=== PATIENT | male | born 1945 | race African-American/Black ===

== ENCOUNTER 2018-07-12 16:51 | Emergency (ER) | payer OTHER ==
[2018-07-12 18:10] LABS: Absolute Lymphocytes (CBC) 1.1 K/uL (0.7-4.9); Absolute Monocytes 0.5 K/uL (0.1-1.3); Absolute Neutrophil 5.5 K/uL (1.8-8.0); Eosinophils % 1.2 % (0-4.4); Hematocrit 37.5 % (39.6-49.0); Lymphocytes % 15.1 % (15.3-44.8); Monocytes % 7.4 % (3.3-12.3); RBC Red Blood Cell Count 4.06 M/uL (4.33-5.43)
[2018-07-12] MEDS ORDERED: FENTANYL CITR 100 MCG/2 ML ONE ×2 (18:24→19:36)
[2018-07-12] MEDS ORDERED: METRONIDAZOLE 500mg IVPB 500 MG/100 ML BAG IV ONE (18:26)
[2018-07-12] MEDS ORDERED: ONDANSETRON 4 MG/2 ML VIAL ONE (18:26)
[2018-07-12] MEDS ORDERED: CIPROFLOXACIN 400mg IV 400 MG/200 ML BAG IV ONE (18:26)
[2018-07-12 18:32] LABS: ALT/SGPT 35 U/L (12-78); AST/SGOT 29 U/L (15-37); Albumin 3.9 g/dL (3.4-5.0); Alkaline Phosphatase 67 U/L (45-117); BUN Blood Urea Nitrogen 18 mg/dL (7-18); Bicarbonate 29 mmol/L (21-32); Bilirubin Direct < 0.1 mg/dL (0-0.2); Bilirubin Total 0.2 mg/dL (0.2-1.0); Glucose Level 102 mg/dL (74-106); Lipase 83 U/L (73-393); Potassium 4.2 mmol/L (3.5-5.1); Protein, Total 7.5 g/dL (6.4-8.2); Sodium Level 142 mmol/L (136-145)
[2018-07-12] MEDS ORDERED: CEFTRIAXONE/SWI 1gm 1 GM/10 ML SYR ONE (19:00)
[2018-07-12 19:21] LABS: Blood Morphology Comment NOT SEEN (NOT SEEN); Platelet Estimate ADEQ; Urine White Blood Cell Casts OK
--- NOTE | 2018-07-12 20:14 | RAD REPORT ---
EXAM DESCRIPTION: CT - Chest Abdomen Pelvis W Cont - 07/12/2018 8:00 pm CLINICAL HISTORY: Chest and abdomen pain. ABD PAIN COMPARISON: No comparisons TECHNIQUE: Approximately 100 mL nonionic IV contrast was administered to the patient. All CT scans are performed using dose optimization technique as appropriate and may include automated exposure control or mA/KV adjustment according to patient size. FINDINGS: Prominent emphysematous changes are present throughout the lungs with areas of parahilar s carring present bilaterally. No focal lung infiltrate.No pleural or pericardial effusion.No intrathor acic adenopathy.Pulmonary arterial tree appears prominent in size likely indicating underlying pulmon rolando arterial hypertension. Mild fatty liver is present. No focal lesion or biliary dilatation. The spleen, pancreas, adrenal gla nds and kidneys show no acute process. Benign 1 cm cortical cyst is present right kidney. Moderate inflammation is seen surrounding proximal descending colon where several diverticula are pre sent. Thickening and fluid is present in the left pericolic gutter. Normal appendix. No pathologic l ymphadenopathy in the abdomen or pelvis. No worrisome osseous finding. IMPRESSION: Mild short-segment acute diverticulitis involving the descending colon without abscess.
--- NOTE | 2018-07-12 20:15 | RAD REPORT ---
EXAM DESCRIPTION: RAD - Chest Single View - 07/12/2018 6:57 pm CLINICAL HISTORY: ABDOMINAL DISTENTION Chest pain. COMPARISON: No comparisons FINDINGS: Portable technique limits examination quality. Prominent emphysematous and fibrotic changes are present throughout the lungs. The heart is mildly pr ominent in size. No displaced fractures.
--- NOTE | 2018-07-12 20:18 | ER ---
Nurse's Notes [facility] Name: Everton Ochoa Age: 73 yrs Sex: Male : 1945 Arrival Date: 07/12/2018 Time: 16:55 Bed 2 Private MD: out of town, doctor Diagnosis: Abdominal tenderness;Diverticular disease of intestine;Diverticulitis of large intestine without perforation or abscess without bleeding;Type 2 diabetes mellitus Presentation: 07/12 17:02 Presenting complaint: Patient states: Left-sided abd pain and diarrhea x 2 days ago. Pt aa5 reports hx of diverticulitis, denies bloody stools. Transition of care: patient was not received from another setting of care. Onset of symptoms was June 2018. Risk Assessment: Do you want to hurt yourself or someone else? Patient reports no desire to harm self or others. Initial Sepsis Screen: Does the patient meet any 2 criteria? No. Patient's initial sepsis screen is negative. Does the patient have a suspected source of infection? No. Patient's initial sepsis screen is negative. Care prior to arrival: None. 17:02 Method Of Arrival: Ambulatory aa5 17:02 Acuity: JUNIOR 3 aa5 Historical: - Allergies: 17:07 No Known Allergies; aa5 - Home Meds: 17:07 Advair Diskus Inhl [Active]; Albuterol Inhl [Active]; amlodipine 5 mg tab [Active]; aa5 Aspirin Oral [Active]; azathioprine 50 mg Oral tab [Active]; Bystolic 5 mg oral tab [Active]; lisinopril 10 mg Oral tab [Active]; bactrim DS Thursday, Thursday and Thursday [Active]; metformin 500 mg Oral tab [Active]; pravastatin oral oral [Active]; Nexium Oral [Active]; - PMHx: 17:07 Hypertension; Diabetes - NIDDM; Pulmonary hypertension; Diverticulitis; aa5 17:07 Sarcoidosis; aa5 - PSHx: 17:07 Heart stents; aa5 - Immunization history:: Adult Immunizations up to date. - Social history:: Smoking status: Patient/guardian denies using tobacco. - Family history:: not pertinent. - Ebola Screening: : No symptoms or risks identified at this time. Screenin:59 Abuse screen: Denies threats or abuse. Denies injuries from another. Nutritional sv screening: No deficits noted. Tuberculosis screening: No symptoms or risk factors identified. Fall Risk None identified. Assessment: 17:55 General: Appears in no apparent distress. uncomfortable, well developed, Behavior is sv calm, cooperative, appropriate for age. Pain: Complains of pain in left lower quadrant and left upper quadrant Pain currently is 7 out of 10 on a pain scale. Quality of pain is described as tender, Pain began 2-3 days ago. Is intermittent. Neuro: Level of Consciousness is awake, alert, obeys commands, Oriented to person, place, time, situation, Moves all extremities. Full function Gait is steady. Respiratory: Airway is patent Respiratory effort is even, unlabored, Respiratory pattern is regular, symmetrical. GI: Abdomen is distended, Abdomen is tender to palpation in left upper quadrant and left lower quadrant. Derm: Skin is pink, warm \T\ dry. 18:26 Reassessment: Patient appears in no apparent distress at this time. Patient and/or tw2 family updated on plan of care and expected duration. Pain level reassessed. Patient is alert, oriented x 3, equal unlabored respirations, skin warm/dry/pink. 18:55 Reassessment: Patient appears in no apparent distress at this time. Patient and/or sv family updated on plan of care and expected duration. Pain level reassessed. Patient is alert, oriented x 3, equal unlabored respirations, skin warm/dry/pink. 19:22 Reassessment: Patient appears in no apparent distress at this time. Patient and/or aa1 family updated on plan of care and expected duration. Pain level reassessed. Patient is alert, oriented x 3, equal unlabored respirations, skin warm/dry/pink. Pt reports pain has improved but is still there. Per MD orders will give additional dose of pain medication at this time. 19:50 Reassessment: Patient appears in no apparent distress at this time. Patient is alert, aa1 oriented x 3, equal unlabored respirations, skin warm/dry/pink. pt taken to CT at this time. 20:45 Reassessment: Patient appears in no apparent distress at this time. Patient is alert, aa1 oriented x 3, equal unlabored respirations, skin warm/dry/pink. Discussed d/c \T\ f/u instructions with pt \T\ significant other; denies questions or concerns at this time Patient states feeling better. Vital Signs: 17:05 BP 148 / 64; Pulse 92; Resp 16 S; Temp 99.4(TE); Pulse Ox 97% on R/A; Weight 75.3 kg aa5 (R); Height 5 ft. 6 in. (167.64 cm) (R); Pain 7/10; 18:26 BP 139 / 73; Pulse 84; Resp 17; Pulse Ox 95% on R/A; tw2 19:20 BP 149 / 71; Pulse 86; Resp 18; Temp 98.5; Pulse Ox 95% on R/A; Pain 5/10; aa1 20:30 BP 121 / 65; Pulse 74; Resp 16; Temp 98.1; Pulse Ox 97% on R/A; Pain 0/10; aa1 17:05 Body Mass Index 26.79 (75.30 kg, 167.64 cm) aa5 ED Course: 16:55 Patient arrived in ED. mr 16:56 out of town, doctor is Private Physician. mr 17:02 Arm band placed on. aa5 17:03 Triage completed. aa5 17:37 Adams Shah MD is Attending Physician. clint 17:51 Di Ortiz, RN is Primary Nurse. sv 17:55 Initial lab(s) drawn, by me, sent to lab. Inserted saline lock: 20 gauge in right sv antecubital area, using aseptic technique. Blood collected. Flushed right antecubital with 5 ml normal saline. 17:59 Patient has correct armband on for positive identification. Placed in gown. Bed in low sv position. Adult w/ patient. Door closed. Head of bed elevated. 18:24 EKG done, by ED staff, reviewed by Adams Shah MD. sv 18:34 Awaiting lab results, Awaiting CT Scan. sv 18:56 Chest Single View XRAY In Process Unspecified. EDMS 19:02 Report given to Migdalia HALL. sv 19:07 Primary Nurse role handed off by Di Ortiz, ISABEL sv 19:09 Michelle Iqbal, ISABEL is Primary Nurse. aa1 19:30 [facility]ord[facility]C [facility]. snw 19:[address] via wheelchair. vm2 19:58 CT completed. Patient tolerated procedure well. Patient moved back from CT. vm2 20:01 Chest Abdomen Pelvis W Cont In Process Unspecified. EDMS 20:18 Samuel Porter MD is Referral Physician. snw 20:30 No provider procedures requiring assistance completed. IV discontinued, intact, aa1 bleeding controlled, No redness/swelling at site. Pressure dressing applied. Administered Medications: 18:18 Drug: Zofran 4 mg Route: IVP; Site: right antecubital; tw2 18:55 Follow up: Response: No adverse reaction; Nausea is decreased sv 18:20 Drug: fentaNYL (PF) 25 mcg Route: IVP; Site: right antecubital; tw2 18:55 Follow up: Response: No adverse reaction sv 18:21 Drug: Flagyl 500 mg Volume: 100 ml; Route: IVPB; Rate: 200 ml/hr; Infused Over: 30 tw2 mins; Site: right antecubital; 19:03 Follow up: Response: No adverse reaction; IV Status: Completed infusion; IV Intake: sv 100ml 18:53 Drug: Rocephin - (cefTRIAXone) 1 grams Route: IVPB; Infused Over: 30 mins; Site: right sv antecubital; 19:00 Follow up: IV Status: Completed infusion aa1 18:59 Drug: Cipro 400 mg Volume: 200 ml; Route: IVPB; Infused Over: 60 mins; Site: right tw2 antecubital; 20:00 Follow up: IV Status: Completed infusion aa1 19:29 Drug: fentaNYL (PF) 25 mcg Route: IVP; Site: right antecubital; aa1 20:30 Follow up: Response: No adverse reaction; Pain is decreased aa1 Intake: 18:25 PO: 500ml (Contrast); Total: 500ml. sv 19:03 IV: 100ml; Total: 600ml. sv 18:25 Called and informed Franko. sv Outcome: 20:18 Discharge ordered by . snw 20:30 Discharged to home ambulatory, with significant other. aa1 20:30 Condition: good 20:30 Discharge instructions given to patient, significant other, Instructed on discharge instructions, follow up and referral plans. medication usage, Demonstrated understanding of instructions, follow-up care, medications, Prescriptions given X 3. 20:47 Patient left the ED. aa1 Signatures: Dispatcher [employer] EDHI Di Ortiz RN RN Michelle Moreland RN RN aa1 Adams Shah MD MD cha Therrien, Shelly, MATE CHIEF-C MATE CHIEF-Csnw Shila AndersonLaina zavala RN RN aa5 Santa Hoffman RN RN tw2 Shalonda Perez 2 Corrections: (The following items were deleted from the chart) 19:03 18:55 Response: No adverse reaction; IV Status: Completed infusion tw2 sv
--- NOTE | 2018-07-12 20:18 | EDPHYS ---
Physician Documentation [facility] Name: Everton Ochoa Age: 73 yrs Sex: Male : 1945 Arrival Date: 07/12/2018 Time: 16:55 Bed 2 Private MD: out of town, doctor ED Physician Adams Shah HPI: 07/12 18:11 This 73 yrs old Black Male presents to ER via Ambulatory with complaints of Abdominal clint Pain. 18:11 The patient presents with abdominal pain in the left upper quadrant, in the left lower clint quadrant. Onset: The symptoms/episode began/occurred 2 day(s) ago. The symptoms do not radiate. Associated signs and symptoms: none. The symptoms are described as constant, crampy. Modifying factors: The symptoms are alleviated by nothing. Severity of pain: At its worst the pain was moderate. The patient has experienced similar episodes in the past, several times. Historical: - Allergies: 17:07 No Known Allergies; aa5 - Home Meds: 17:07 Advair Diskus Inhl [Active]; Albuterol Inhl [Active]; amlodipine 5 mg tab [Active]; aa5 Aspirin Oral [Active]; azathioprine 50 mg Oral tab [Active]; Bystolic 5 mg oral tab [Active]; lisinopril 10 mg Oral tab [Active]; bactrim DS Thursday, Thursday and Thursday [Active]; metformin 500 mg Oral tab [Active]; pravastatin oral oral [Active]; Nexium Oral [Active]; - PMHx: 17:07 Hypertension; Diabetes - NIDDM; Pulmonary hypertension; Diverticulitis; aa5 17:07 Sarcoidosis; aa5 - PSHx: 17:07 Heart stents; aa5 - Immunization history:: Adult Immunizations up to date. - Social history:: Smoking status: Patient/guardian denies using tobacco. - Family history:: not pertinent. - Ebola Screening: : No symptoms or risks identified at this time. ROS: 18:11 Constitutional: Negative for fever, chills, and weight loss, Eyes: Negative for injury, clint pain, redness, and discharge, ENT: Negative for injury, pain, and discharge, Neck: Negative for injury, pain, and swelling, Cardiovascular: Negative for chest pain, palpitations, and edema, Respiratory: Negative for shortness of breath, cough, wheezing, and pleuritic chest pain, Back: Negative for injury and pain, : Negative for injury, bleeding, discharge, and swelling, MS/Extremity: Negative for injury and deformity, Skin: Negative for injury, rash, and discoloration, Neuro: Negative for headache, weakness, numbness, tingling, and seizure, Psych: Negative for depression, anxiety, suicide ideation, homicidal ideation, and hallucinations, Allergy/Immunology: Negative for hives, rash, and allergies, Endocrine: Negative for neck swelling, polydipsia, polyuria, polyphagia, and marked weight changes, Hematologic/Lymphatic: Negative for swollen nodes, abnormal bleeding, and unusual bruising. 18:11 Abdomen/GI: Positive for abdominal pain, abdominal cramps, of the left upper quadrant and left lower quadrant. Exam: 18:11 Constitutional: This is a well developed, well nourished patient who is awake, alert, clint and in no acute distress. Head/Face: Normocephalic, atraumatic. Eyes: Pupils equal round and reactive to light, extra-ocular motions intact. Lids and lashes normal. Conjunctiva and sclera are non-icteric and not injected. Cornea within normal limits. Periorbital areas with no swelling, redness, or edema. ENT: Nares patent. No nasal discharge, no septal abnormalities noted. Tympanic membranes are normal and external auditory canals are clear. Oropharynx with no redness, swelling, or masses, exudates, or evidence of obstruction, uvula midline. Mucous membranes moist. Neck: Trachea midline, no thyromegaly or masses palpated, and no cervical lymphadenopathy. Supple, full range of motion without nuchal rigidity, or vertebral point tenderness. No Meningismus. Chest/axilla: Normal chest wall appearance and motion. Nontender with no deformity. No lesions are appreciated. Cardiovascular: Regular rate and rhythm with a normal S1 and S2. No gallops, murmurs, or rubs. Normal PMI, no JVD. No pulse deficits. Respiratory: Lungs have equal breath sounds bilaterally, clear to auscultation and percussion. No rales, rhonchi or wheezes noted. No increased work of breathing, no retractions or nasal flaring. Back: No spinal tenderness. No costovertebral tenderness. Full range of motion. Male : Normal genitalia with no discharge or lesions. Skin: Warm, dry with normal turgor. Normal color with no rashes, no lesions, and no evidence of cellulitis. MS/ Extremity: Pulses equal, no cyanosis. Neurovascular intact. Full, normal range of motion. Neuro: Awake and alert, GCS 15, oriented to person, place, time, and situation. Cranial nerves II-XII grossly intact. Motor strength 5/5 in all extremities. Sensory grossly intact. Cerebellar exam normal. Normal gait. Psych: Awake, alert, with orientation to person, place and time. Behavior, mood, and affect are within normal limits. 18:11 Abdomen/GI: Inspection: distension, Bowel sounds: normal, Palpation: mild abdominal tenderness, moderate abdominal tenderness, in the left upper quadrant and left lower quadrant, Liver: no appreciated palpable abnormalities, Hernia: not appreciated. Vital Signs: 17:05 BP 148 / 64; Pulse 92; Resp 16 S; Temp 99.4(TE); Pulse Ox 97% on R/A; Weight 75.3 kg aa5 (R); Height 5 ft. 6 in. (167.64 cm) (R); Pain 7/10; 18:26 BP 139 / 73; Pulse 84; Resp 17; Pulse Ox 95% on R/A; tw2 19:20 BP 149 / 71; Pulse 86; Resp 18; Temp 98.5; Pulse Ox 95% on R/A; Pain 5/10; aa1 20:30 BP 121 / 65; Pulse 74; Resp 16; Temp 98.1; Pulse Ox 97% on R/A; Pain 0/10; aa1 17:05 Body Mass Index 26.79 (75.30 kg, 167.64 cm) aa5 MDM: 17:37 Patient medically screened. [facility] 18:11 Data reviewed: vital signs, nurses notes, lab test result(s), EKG, radiologic studies, [facility] CT scan, plain films. 07/12 17:51 Order name: Basic Metabolic Panel; Complete Time: 18:47 sv 07/12 17:51 Order name: CBC with Diff; Complete Time: 19:30 sv 07/12 17:51 Order name: Creatinine for Radiology; Complete Time: 18:47 sv 07/12 17:51 Order name: Hepatic Function; Complete Time: 18:47 07/12 17:51 Order name: Lipase; Complete Time: 18:47 07/12 18:22 Order name: CBC Smear Scan; Complete Time: 19:30 EDMS 07/12 18:10 Order name: Chest Single View XRAY; Complete Time: 20:19 [facility] 07/12 19:13 Order name: Chest Abdomen Pelvis W Cont; Complete Time: 20:17 EDMS 07/12 19:40 Order name: Urine Dipstick--Ancillary (enter results) [facility] 07/12 17:51 Order name: IV Saline Lock; Complete Time: 17:58 sv 07/12 17:51 Order name: Labs collected and sent; Complete Time: 17:58 sv 07/12 18:09 Order name: EKG; Complete Time: 18:10 [facility] 07/12 18:09 Order name: EKG - Nurse/Tech; Complete Time: 18:22 [facility] Administered Medications: 18:18 Drug: Zofran 4 mg Route: IVP; Site: right antecubital; tw2 18:55 Follow up: Response: No adverse reaction; Nausea is decreased sv 18:20 Drug: fentaNYL (PF) 25 mcg Route: IVP; Site: right antecubital; tw2 18:55 Follow up: Response: No adverse reaction sv 18:21 Drug: Flagyl 500 mg Volume: 100 ml; Route: IVPB; Rate: 200 ml/hr; Infused Over: 30 tw2 mins; Site: right antecubital; 19:03 Follow up: Response: No adverse reaction; IV Status: Completed infusion; IV Intake: sv 100ml 18:53 Drug: Rocephin - (cefTRIAXone) 1 grams Route: IVPB; Infused Over: 30 mins; Site: right sv antecubital; 19:00 Follow up: IV Status: Completed infusion aa1 18:59 Drug: Cipro 400 mg Volume: 200 ml; Route: IVPB; Infused Over: 60 mins; Site: right tw2 antecubital; 20:00 Follow up: IV Status: Completed infusion aa1 19:29 Drug: fentaNYL (PF) 25 mcg Route: IVP; Site: right antecubital; aa1 20:30 Follow up: Response: No adverse reaction; Pain is decreased aa1 Disposition: 07/12/18 20:18 Discharged to Home. Impression: Abdominal tenderness, Diverticular disease of intestine, Diverticulitis of large intestine without perforation or abscess without bleeding, Type 2 diabetes mellitus. - Condition is Stable. - Discharge Instructions: Abdominal Pain, Adult, Type 2 Diabetes Mellitus, Diagnosis, Adult, Diverticulitis, Diverticulitis, [id number], Abdominal Pain, Adult, [id number], Type 2 Diabetes Mellitus, Diagnosis, Adult, [id number], Type 2 Diabetes Mellitus, Self Care, Adult. - Prescriptions for Bentyl 20 mg Oral Tablet - take 1 tablet by ORAL route every 6 hours As needed; 20 tablet. Flagyl 500 mg Oral Tablet - take 1 tablet by ORAL route every 6 hours for 10 days; 40 tablet. Cipro 500 mg Oral Tablet - take 1 tablet by ORAL route every 12 hours for 10 days; 20 tablet. - Medication Reconciliation Form, Thank You Letter, Antibiotic Education, Prescription Opioid Use form. - Follow up: Private Physician; When: 2 - 3 days; Reason: Recheck today's complaints, Continuance of care, Re-evaluation by your physician. Follow up: Samuel Porter; When: 2 - 3 days; Reason: Recheck today's complaints, Re-evaluation by your physician. - Problem is new. - Symptoms have improved. Signatures: Dispatcher [employer] EDWA Di Ortiz, RN RN Michelle Moreland RN RN aa1 Adams Shah MD MD cha Therrien, Shelly, WAITER/WAITRESS HEAD-C WAITER/WAITRESS HEAD-Csnw Laina Cedillo, RN RN aa5 Santa Hoffman RN RN tw2 Corrections: (The following items were deleted from the chart) 19:13 18:10 Abdomen Pelvis W Con+CT.RAD.BRZ ordered. EDWA EDMS 19:13 19:04 Thorax W/ Con+CT.RAD.BRZ ordered. [facility] EDMS 20:47 20:18 07/12/2018 20:18 Discharged to Home. Impression: Abdominal tenderness; aa1 Diverticular disease of intestine; Diverticulitis of large intestine without perforation or abscess without bleeding; Type 2 diabetes mellitus. Condition is Stable. Discharge Instructions: Abdominal Pain, Adult, Diverticulitis, Diverticulitis, [id number], Abdominal Pain, Adult, [id number], Type 2 Diabetes Mellitus, Diagnosis, Adult, Type 2 Diabetes Mellitus, Diagnosis, Adult, [id number], Type 2 Diabetes Mellitus, Self Care, Adult. Prescriptions for Bentyl 20 mg Oral Tablet - take 1 tablet by ORAL route every 6 hours As needed; 20 tablet, Flagyl 500 mg Oral Tablet - take 1 tablet by ORAL route every 6 hours for 10 days; 40 tablet, Cipro 500 mg Oral Tablet - take 1 tablet by ORAL route every 12 hours for 10 days; 20 tablet. and Forms are Medication Reconciliation Form, Thank You Letter, Antibiotic Education, Prescription Opioid Use. Follow up: Private Physician; When: 2 - 3 days; Reason: Recheck today's complaints, Continuance of care, Re-evaluation by your physician. Follow up: Samuel Porter; When: 2 - 3 days; Reason: Recheck today's complaints, Re-evaluation by your physician. Problem is new. Symptoms have improved. snw
[2018-07-12 21:17] LABS: Urine Blood NEGATIVE (NEG); Urine Glucose NEGATIVE (NEG); Urine Protein NEGATIVE (NEG); Urine Specific Gravity 1.015 (1.005-1.030)
--- NOTE | 2018-07-13 08:48 | EKG ---
Test Date: 2018-07-12 Test Time: 18:18:48 Online Advertising Manager: ESTHER MEASUREMENT RESULTS: Intervals: Rate: 78 CA: 148 QRSD: 78 QT: 358 QTc: 408 [place]: P: 61 CA: 148 QRS: 73 T: 52 INTERPRETIVE STATEMENTS: Normal sinus rhythm Normal ECG No previous ECG available for comparison Electronically Signed On 07-13-18 08:46:07 [employer]OX F[employer] by Hi Wren
== END 2018-07-12 20:47 | disposition home or self-care (01) ==
LOC: ER 16:51
DX: K57.90 Diverticulosis of intestine, part unspecified, without perforation or abscess without bleeding (principal); K57.92 Diverticulitis of intestine, part unspecified, without perforation or abscess without bleeding; E11.9 Type 2 diabetes mellitus without complications; I10 Essential (primary) hypertension; I27.20 Pulmonary hypertension, unspecified; Z95.818 Presence of other cardiac implants and grafts
CPT/HCPCS: 36415; 71045; 71260; 74177; 80048; 80076; 81003; 83690; 85025; 93005; J0696; J0744; J2405; J3010 ×2; Q9967